=== PATIENT | male | born 1940 | race Caucasian/White ===

== ENCOUNTER 2019-09-09 11:08 | Outpatient (CLI) | payer MEDICARE, BC ==
[~2019-09-09 11:08] MED LIST: Magnevist 469MG/ML 20 ML VIAL ONE
--- NOTE | 2019-09-09 13:24 | MRI ---
MRI BRAIN WITH AND WITHOUT CONTRAST: DATE: 09/09/2019 HISTORY: 79-year-old male with vertigo COMPARISON: None TECHNIQUE: Multiplanar, multisequence MRI of the brain performed pre- and post-IV injection of gadolinium based contrast agent. 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 There is no restricted diffusion to indicate acute infarction. There is a very small focus of signal abnormality with medusa head enhancement and draining vein in r ight cerebellar hemisphere, representing a DVA (developmental venous anomaly). No other abnormal intra-axial enhancement. Mild to moderate chronic ischemic white matter changes of the cerebrum, and minimal such changes of m idbrain and deven. No mass effect, midline shift, or extra-axial fluid collection. Left mastoid effusion. No dural venous sinus thrombosis. 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 3) left mastoid effusion. 4) small old bifrontal upper deep cerebral white matter lacunar infarctions. 5) no acute intracranial findings.
== END 2019-09-09 11:09 | disposition home or self-care (01) ==
LOC: MRI 11:08
PROVIDERS: ATTEND Family Medicine
DX: R42 Dizziness and giddiness (principal); I67.82 Cerebral ischemia; H74.8X2 Other specified disorders of left middle ear and mastoid; I25.2 Old myocardial infarction
CPT/HCPCS: 70553; A9579

== ENCOUNTER 2021-05-21 19:00 | Outpatient (CLI) | payer MEDICARE, BC | END 2021-05-21 19:01 | disposition home or self-care (01) | LOC: SLEEPLAB 19:00 | PROVIDERS: ATTEND Family Medicine | DX: G47.33 Obstructive sleep apnea (adult) (pediatric) (principal); R06.83 Snoring; I11.0 Hypertensive heart disease with heart failure; I50.9 Heart failure, unspecified; R53.83 Other fatigue; G47.10 Hypersomnia, unspecified; G47.31 Primary central sleep apnea; E66.9 Obesity, unspecified; Z68.32 Body mass index [BMI] 32.0-32.9, adult | CPT/HCPCS: 95811 ==

== ENCOUNTER 2021-11-12 19:00 | Outpatient (CLI) | payer MEDICARE, BC | END 2021-11-12 19:01 | disposition home or self-care (01) | LOC: SLEEPLAB 19:00 | PROVIDERS: ATTEND Internal Medicine Pulmonary Disease | DX: G47.33 Obstructive sleep apnea (adult) (pediatric) (principal); R53.83 Other fatigue; R09.89 Other specified symptoms and signs involving the circulatory and respiratory systems; G47.10 Hypersomnia, unspecified; E66.9 Obesity, unspecified; Z68.32 Body mass index [BMI] 32.0-32.9, adult | CPT/HCPCS: 95811 ==

== ENCOUNTER 2023-11-29 13:31 | Outpatient (CLI) | payer MEDICARE, BC ==
[2023-11-29 14:45] LABS: Hematocrit 41.6 % (42.0-52.0); Hemoglobin 13.5 g/dL (14.0-18.0); Mean Corpuscular HGB CONC 32.5 g/dL (32.0-36.0); Mean Corpuscular Hemoglobin 28.2 pg (27.0-31.0); Mean Platelet Volume 10.1 fL (7.4-10.4); Platelet Count 211 10x3/uL (130-400); RBC Distribution Width 13.8 % (11.5-14.5); Red Blood Cell (RBC) Count 4.78 mill/uL (4.70-6.10)
[2023-11-29 15:04] LABS: Anion Gap 11 mmol/L (10-20); BUN (Urea Nitrogen) 14 mg/dL (8.4-25.7); Calc. Creatinine Clearance 0 mL/min (70-130); Calcium 9.7 mg/dL (7.8-10.44); Carbon Dioxide 29 mmol/L (23-31); Chloride 105 mmol/L (98-107); Estimated GFR 64; Glucose 165 mg/dL (83-110); INR-International Normal Ratio 1.5; Potassium 3.8 mmol/L (3.5-5.1); Prothrombin Time 18.3 sec (12.0-14.7); Sodium 141 mmol/L (136-145)
== END 2023-11-29 13:32 | disposition home or self-care (01) ==
LOC: LABBT 13:31
PROVIDERS: ATTEND Internal Medicine Cardiovascular Disease
DX: Z01.812 Encounter for preprocedural laboratory examination (principal); T82.111A Breakdown (mechanical) of cardiac pulse generator (battery), initial encounter; I25.10 Atherosclerotic heart disease of native coronary artery without angina pectoris
CPT/HCPCS: 80048; 85027; 85610

== ENCOUNTER 2023-12-03 09:27 | Day surgery (SDC) | payer MEDICARE, BC ==
[2023-11-29 13:56] VITALS: BMI 26.3
[2023-12-03] MEDS ORDERED: CEFAZOLIN 2 GM VIAL ONE ×2 (10:17→14:40)
[2023-12-03] MEDS ORDERED: Gentamicin 80 MG/2 ML VIAL ONE ×2 (10:17→14:40)
[2023-12-03] MEDS ORDERED: Vancomycin (BATCH) 1.5 GM/300 ML BAG ONE (11:57)
[2023-12-03] MEDS ORDERED: Propofol 500 MG/50 ML VIAL ONE (14:26)
[2023-12-03] MEDS ORDERED: PROPOFOL 200 MG/20 ML VIAL ONE (14:34)
[2023-12-03] MEDS ORDERED: Lidocaine 1% PF 5 ML VIAL ONE (14:34)
== END 2023-12-03 18:35 | disposition home or self-care (01) ==
LOC: SDC 09:27
PROVIDERS: ATTEND Internal Medicine Cardiovascular Disease
PROC: 0JPT3PZ Removal of Cardiac Rhythm Related Device from Trunk Subcutaneous Tissue and Fascia, Percutaneous Approach (ICD-10-PCS; principal; 2023-12-03)
PROC: 0JH608Z Insertion of Defibrillator Generator into Chest Subcutaneous Tissue and Fascia, Open Approach (ICD-10-PCS; 2023-12-03)
DX: I25.10 Atherosclerotic heart disease of native coronary artery without angina pectoris (principal); T82.111A Breakdown (mechanical) of cardiac pulse generator (battery), initial encounter; I48.0 Paroxysmal atrial fibrillation; I48.4 Atypical atrial flutter; Z95.0 Presence of cardiac pacemaker; I10 Essential (primary) hypertension; I49.5 Sick sinus syndrome; J44.9 Chronic obstructive pulmonary disease, unspecified; G47.30 Sleep apnea, unspecified; N40.0 Benign prostatic hyperplasia without lower urinary tract symptoms; E11.42 Type 2 diabetes mellitus with diabetic polyneuropathy; Z87.891 Personal history of nicotine dependence; Z79.85 Long-term (current) use of injectable non-insulin antidiabetic drugs; Y83.1 Surgical operation with implant of artificial internal device as the cause of abnormal reaction of the patient, or of later complication, without mention of misadventure at the time of the procedure; Z86.73 Personal history of transient ischemic attack (TIA), and cerebral infarction without residual deficits; Z79.899 Other long term (current) drug therapy
CPT/HCPCS: 33228; C1785; J1580; J2704 ×2; J3370